=== PATIENT | female | born 1960 | race Caucasian/White ===

== ENCOUNTER 2022-02-16 06:47 | Outpatient (CLI) | payer BC, SELFPAY | END 2022-02-16 06:48 | disposition home or self-care (01) | PROVIDERS: PCP Family Medicine; Visit Provider Family Medicine | DX: M51.36 Other intervertebral disc degeneration, lumbar region (principal); M54.16 Radiculopathy, lumbar region | CPT/HCPCS: 62323; J0702; Q9966 ==

== ENCOUNTER 2022-10-12 07:08 | Outpatient (CLI) | payer BC, SELFPAY | END 2022-10-12 07:09 | disposition home or self-care (01) | LOC: INJ CL 07:09 | PROVIDERS: PCP Family Medicine; Visit Provider Family Medicine | DX: M51.36 Other intervertebral disc degeneration, lumbar region (principal); M54.16 Radiculopathy, lumbar region | CPT/HCPCS: 62323; J0702; Q9966 ==

== ENCOUNTER 2023-08-30 07:21 | Outpatient (CLI) | payer BC, SELFPAY | END 2023-08-30 07:22 | disposition home or self-care (01) | LOC: INJ CL 07:22 | PROVIDERS: PCP Family Medicine; Visit Provider Family Medicine | DX: M51.36 Other intervertebral disc degeneration, lumbar region (principal); M54.16 Radiculopathy, lumbar region | CPT/HCPCS: 62323; J0702; Q9966 ==

== ENCOUNTER 2024-04-10 07:13 | Outpatient (CLI) | payer BC, SELFPAY | END 2024-04-10 07:14 | disposition home or self-care (01) | LOC: INJ CL 07:13 | PROVIDERS: PCP Family Medicine; Visit Provider Family Medicine | DX: M54.16 Radiculopathy, lumbar region (principal); M51.369 Other intervertebral disc degeneration, lumbar region without mention of lumbar back pain or lower extremity pain | CPT/HCPCS: 62323; J0702; Q9966 ==